=== PATIENT | female | born 1970 | race Caucasian/White ===

== ENCOUNTER 2017-08-08 23:10 | Emergency (ER) | payer OTHER ==
[~2017-08-08] VITALS: Ht 154.9 cm; Wt 112.5 kg
[2017-08-08] MEDS ORDERED: LISI2.5T PO (23:46)
[2017-08-08 23:52] LABS: HEMATOCRIT 44.2 % (34.6-47.8); HEMOGLOBIN 15.1 g/dL (11.7-16.4); WHITE BLOOD COUNT 15.6 x10^3/uL (3.4-10)
[2017-08-08] MEDS ORDERED: DIPHENHYDRAMINE 50 MG/ML, 1ML ONE (23:53)
[2017-08-08] MEDS ORDERED: PROCHLORPERAZINE 5 MG/ML, 2ML ONE (23:53)
[2017-08-08] MEDS ORDERED: KETOROLAC 30 MG/1 ML ONE (23:53)
[2017-08-09] LABS: BLOOD UREA NITROGEN 11 mg/dL (7-18)
[2017-08-09] MEDS ORDERED: SODIUM CHLORIDE 0.9% 1,000ML IVBOLUS ONE
[2017-08-09] MEDS ORDERED: PROCHLORPERAZINE 5 MG/ML, 2ML IVPush ONE
[2017-08-09] MEDS ORDERED: DIPHENHYDRAMINE 50 MG/ML, 1ML IVPush ONE
[2017-08-09] MEDS ORDERED: SODIUM CHLORIDE FLUSH 10ML SYR IVF ONE
[2017-08-09] MEDS ORDERED: KETOROLAC 30 MG/1 ML IVPush ONE
[2017-08-09] MEDS ORDERED: LORazepam 2 MG/ML, 1ML IVPush ONE (00:30)
[2017-08-09 01:09] VITALS: BP 162/85
== END 2017-08-09 01:08 | disposition home or self-care (01) ==
LOC: ED 23:59
DX: R51 Headache (principal); R11.0 Nausea; I10 Essential (primary) hypertension; E66.9 Obesity, unspecified; F15.10 Other stimulant abuse, uncomplicated; Z90.49 Acquired absence of other specified parts of digestive tract; Z88.5 Allergy status to narcotic agent
CPT/HCPCS: 36415; 70450; 80048; 80307; 82040; 85025; 96361; 96374; 96375; 99285; J0780; J1200; J1885; J7030; G0479

== ENCOUNTER 2017-09-20 10:14 | Emergency (ER) | payer MEDICAID, OTHER ==
[~2017-09-20] VITALS: Ht 154.9 cm; Wt 115.1 kg
[~2017-09-20 10:14] MED LIST: LISI2.5T PO
[2017-09-20 10:26] VITALS: BP 191/111
[2017-09-20] MEDS ORDERED: SODIUM CHLORIDE FLUSH 10ML SYR IVF ONE (12:00)
[2017-09-20] MEDS ORDERED: SODIUM CHLORIDE 0.9% 1,000ML IVBOLUS ONE (12:00)
[2017-09-20 12:02] LABS: BASOPHILS # (AUTO) 0.19 x10^3/uL (0-0.1); BASOPHILS % (AUTO) 2 % (0-1); EOSINOPHILS # (AUTO) 0.27 x10^3/uL (0-0.4); EOSINOPHILS % (AUTO) 2 % (1-7); LYMPHOCYTES # (AUTO) 2.92 x10^3/uL (1-3.4); LYMPHOCYTES % (AUTO) 25 % (22-44); MD NO; MEAN CORPUSCULAR HGB CONC 33.5 g/dL (32.4-35.8); MEAN CORPUSCULAR VOLUME 86.5 fL (80-100); MEAN PLATELET VOLUME 8.4 fL (7.4-10.4); MONOCYTES # (AUTO) 0.57 x10^3/uL (0.2-0.8); MONOCYTES % (AUTO) 5 % (2-9); NEUTROPHILS % (AUTO) 66 % (42-75); PLATELET COUNT 398 x10^3/uL (130-400); RED BLOOD COUNT 4.87 x10^6/uL (3.82-5.3); RED CELL DISTRIBUTION WIDTH 14.5 % (9.6-15.2)
[2017-09-20 12:12] LABS: ALANINE AMINOTRANSFERASE 29 U/L (12-78); ALBUMIN 3.5 g/dL (3.4-5.0); ANION GAP 5 mmol/L (5-15); CALCIUM 8.7 mg/dL (8.5-10.1); CHLORIDE 106 mmol/L (98-107)
[2017-09-20 12:16] LABS: ALKALINE PHOSPHATASE 157 U/L (45-117); BILIRUBIN,TOTAL 0.3 mg/dL (0.2-1.0); CREATININE 0.49 mg/dL (0.55-1.02); TOTAL PROTEIN 7.5 g/dL (6.4-8.2)
== END 2017-09-20 14:22 | disposition home or self-care (01) ==
LOC: ED 14:16
DX: N92.4 Excessive bleeding in the premenopausal period (principal); N93.8 Other specified abnormal uterine and vaginal bleeding; E11.9 Type 2 diabetes mellitus without complications; I10 Essential (primary) hypertension; E66.9 Obesity, unspecified
CPT/HCPCS: 36415; 76830; 80053; 84703; 85025; 99285

== ENCOUNTER 2020-06-18 17:45 | Inpatient (IN) | payer MEDICAID ==
[~2020-06-18] VITALS: Ht 154.9 cm; Wt 145.1 kg
[2020-06-18] MEDS ORDERED: SODIUM CHLORIDE FLUSH 10ML SYR IVF ONE ×2 (18:30→20:00)
[2020-06-18] MEDS ORDERED: LIDOCAINE 1%, 10ML INFIL ONE (18:30)
[2020-06-18 19:07] LABS: BASOPHILS % (AUTO) 1 % (0-1); EOSINOPHILS % (AUTO) 1 % (1-7); LYMPHOCYTES % (AUTO) 17 % (22-44); MEAN CORPUSCULAR HEMOGLOBIN 28.4 pg (27.0-34.8); MEAN CORPUSCULAR HGB CONC 32.7 g/dL (32.4-35.8); MEAN PLATELET VOLUME 8.7 fL (7.4-10.4); MONOCYTES % (AUTO) 8 % (2-9); NEUTROPHILS % (AUTO) 74 % (42-75); PLATELET COUNT 443 x10^3/uL (130-400); RED BLOOD COUNT 5.05 x10^6/uL (3.82-5.3); RED CELL DISTRIBUTION WIDTH 14.1 % (9.6-15.2)
[2020-06-18 19:12] LABS: ALANINE AMINOTRANSFERASE 27 U/L (12-78); ALBUMIN 3.1 g/dL (3.4-5.0); ANION GAP 9 mmol/L (5-15); CALCIUM 9.2 mg/dL (8.5-10.1); CHLORIDE 98 mmol/L (98-107); CREATININE 1.62 mg/dL (0.55-1.02)
[2020-06-18] MEDS ORDERED: LIDOCAINE-MPF 1%, 5ML ONE (19:14)
[2020-06-18 19:17] LABS: MD NO
[2020-06-18 19:20] LABS: ALKALINE PHOSPHATASE 139 U/L (45-117); BILIRUBIN,TOTAL 0.6 mg/dL (0.2-1.0); TOTAL PROTEIN 8.7 g/dL (6.4-8.2)
--- NOTE | 2020-06-18 19:22 | NUR ---
LARGE RED, HOT, SWOLLEN, PAINFUL AREA BETWEEN GLUTEAL FOLDS, HAS BEEN TAKING ABX REPORTS GETTING WORSE.
[2020-06-18] MEDS ORDERED: ONDANSETRON 2MG/ML, 2ML IVPush ONE (20:00)
[2020-06-18] MEDS ORDERED: SODIUM CHLORIDE 0.9% 1,000ML IVBOLUS ONE (20:00)
[2020-06-18] MEDS ORDERED: PROPOFOL 10 MG/ML, 20ML IVPush ONE (20:00)
--- NOTE | 2020-06-18 20:03 | NUR ---
PT W SEVER APARNA, MORBIDLY OBESE. REQUIRING SEDATION, RECOMMEND MOVE TO HIGHER ACUITY ROOM. REPORT ENDORSED.
[2020-06-18] MEDS ORDERED: PROPOFOL 10 MG/ML, 20ML ONE ×2 (20:18)
--- NOTE | 2020-06-18 20:18 | NUR ---
RECEIVED BS REPORT FROM STANISLAW HARRY TO ASSUME PT. CARE. PT. MOVED TO T2 FOR PROCEDURAL SEDATION SET UP. LAB AT BS FOR BLOOD CULTURES AT THIS TIME.
[2020-06-18] MEDS ORDERED: ONDANSETRON 2MG/ML, 2ML ONE (20:54)
[2020-06-18] MEDS ORDERED: MORPHINE SULFATE 4 MG/ML, 1ML ONE ×2 (20:55→21:34)
[2020-06-18] MEDS: MORPHINE SULFATE 4 MG/ML, 1ML IVPush PRN ×2 (20:56→21:37)
[2020-06-18] MEDS ORDERED: AMPICILLIN/SULBACTAM 3 GM in SODIUM CHLORIDE 0.9% 100 ML IV ONE (21:00)
[2020-06-18] MEDS ORDERED: VANCOMYCIN PER PHARMACY MC ONE (21:00)
[2020-06-18] MEDS ORDERED: VANCOMYCIN 2,500 MG in SODIUM CHLORIDE 0.9% 500 ML IV ONE (21:00)
[2020-06-18] MEDS ORDERED: VANCOMYCIN PER PHARMACY MC PRN ×2 (21:00→22:00)
[2020-06-18] MEDS ORDERED: MONT10TA6 PO (21:07)
[2020-06-18] MEDS ORDERED: ALBU0.63 INH (21:07)
[2020-06-18] MEDS ORDERED: BACL20TA PO (21:07)
[2020-06-18] MEDS ORDERED: HYDR25TA6 PO (21:07)
[2020-06-18] MEDS ORDERED: METF500T17 PO (21:07)
--- NOTE | 2020-06-18 21:12 | NUR ---
IV ABX WERE STARTED AFTER 2 SETS OF BLOOD CULTURES
--- NOTE | 2020-06-18 21:30 | NUR ---
PROCEDURAL SEDATION COMPLETED; SEE PAPERWORK FOR ALL DETAILS. MEDS ADMIN BY DR. JASMINE AT AND I&D OF LEFT BUTTOCK COMPLETED BY ABRAM RODRÍGUEZ. DRAINAGE CULTURE COLLECTED AND TAKEN TO LAB. PT. CRYING IN PAIN AT THIS TIME; WILL DISCUSS WITH .
--- NOTE | 2020-06-18 21:37 | NUR ---
PT. MEDICATED WITH 2ND DOSE OF MORPHINE PER MAR POST SEDATION FOR CONTINUED 10/10 PAIN TO LEFT BUTTOCK.
--- NOTE | 2020-06-18 21:50 | NUR ---
PT. RESTING ON GURENY WITH EYES CLOSED AT THIS TIME. APPEARS MORE COMFORTABLE. ALL MONITORS REMAIN IN PLACE. ETCO2=40.
[2020-06-18] MEDS: AMPICILLIN/SULBACTAM 3 GM in SODIUM CHLORIDE 0.9% 100 ML IV SCH (21:52)
[2020-06-18] MEDS ORDERED: POLYETHYLENE GLYCOL 17 GM PACKET PO PRN (22:00)
[2020-06-18] MEDS ORDERED: ONDANSETRON ODT 4 MG PO PRN (22:00)
[2020-06-18] MEDS ORDERED: BISACODYL 10 MG SUPP PR PRN (22:00)
[2020-06-18] MEDS ORDERED: ACETAMINOPHEN 325 MG TABLET PO PRN (22:00)
--- NOTE | 2020-06-18 22:04 | NUR ---
FIRST ATTEMPT TO CALL REPORT TO FLOOR.
--- NOTE | 2020-06-18 22:14 | NUR ---
REPORT TO STANISLAW JOHNSON. FLOOR READY FOR PT. TRANSPORT. ENDORSED TO STANISLAW JOHNSON THAT MED REQ WAS NOT YET COMPLETED; BOLUS STILL INFSUING AT TIME OF TRANSFER.
[2020-06-18] MEDS ORDERED: LOSA100T14 PO (22:59)
[2020-06-18] MEDS ORDERED: PHARMACOKINETIC MONITORING MC PRN (23:00)
[2020-06-18] MEDS ORDERED: ALBUTEROL HFA 90 MCG/SPRAY INH PRN (23:00)
[2020-06-18] MEDS: INSULIN LISPRO 100 UNITS/ML, PEN SQ-INSULIN SCH (23:41)
[2020-06-18] MEDS: SODIUM CHLORIDE 0.9% 1,000 ML IV SCH (23:42)
[2020-06-18] MEDS: HEPARIN 5,000 UNITS/ML, 1ML SQ SCH (23:46)
[2020-06-19 00:25] VITALS: BP 123/70
[2020-06-19] MEDS: AMPICILLIN/SULBACTAM 3 GM in SODIUM CHLORIDE 0.9% 100 ML IV SCH ×4 (04:35→22:44)
[2020-06-19 05:31] LABS: ANION GAP 10 mmol/L (5-15); BASOPHILS % (AUTO) 1 % (0-1); CALCIUM 8.3 mg/dL (8.5-10.1); CHLORIDE 102 mmol/L (98-107); EOSINOPHILS % (AUTO) 2 % (1-7); LYMPHOCYTES % (AUTO) 22 % (22-44); MEAN CORPUSCULAR HEMOGLOBIN 28.5 pg (27.0-34.8); MEAN CORPUSCULAR HGB CONC 32.7 g/dL (32.4-35.8); MEAN PLATELET VOLUME 8.5 fL (7.4-10.4); MONOCYTES % (AUTO) 9 % (2-9); NEUTROPHILS % (AUTO) 67 % (42-75); PLATELET COUNT 358 x10^3/uL (130-400); RED BLOOD COUNT 4.12 x10^6/uL (3.82-5.3); RED CELL DISTRIBUTION WIDTH 14.2 % (9.6-15.2)
[2020-06-19] MEDS: SODIUM CHLORIDE 0.9% 1,000 ML IV SCH ×3 (05:32→19:51)
[2020-06-19 05:59] LABS: MD NO
[2020-06-19 07:12] VITALS: BP 125/81
[2020-06-19] MEDS: HEPARIN 5,000 UNITS/ML, 1ML SQ SCH ×2 (08:24→16:09)
[2020-06-19] MEDS: SENNA/DOCUSATE TABLET PO SCH (08:25)
[2020-06-19] MEDS: INSULIN LISPRO 100 UNITS/ML, PEN SQ-INSULIN SCH ×4 (08:27→20:16)
[2020-06-19] MEDS: MONTELUKAST 10 MG TABLET PO SCH (08:27)
[2020-06-19 12:38] VITALS: BP 135/83
[2020-06-19] MEDS: VANCOMYCIN 2,300 MG in SODIUM CHLORIDE 0.9% 500 ML IV SCH (18:03)
[2020-06-19] MEDS: BACLOFEN 10 MG TABLET PO SCH (19:51)
[2020-06-19 20:50] VITALS: BP 136/78
[2020-06-20 02:46] VITALS: BP 128/74
[2020-06-20] MEDS: AMPICILLIN/SULBACTAM 3 GM in SODIUM CHLORIDE 0.9% 100 ML IV SCH ×3 (04:12→18:33)
[2020-06-20] MEDS: SODIUM CHLORIDE 0.9% 1,000 ML IV SCH ×3 (04:14→19:38)
[2020-06-20 05:08] LABS: BASOPHILS % (AUTO) 1 % (0-1); EOSINOPHILS % (AUTO) 4 % (1-7); LYMPHOCYTES % (AUTO) 35 % (22-44); MEAN CORPUSCULAR HEMOGLOBIN 28.5 pg (27.0-34.8); MEAN CORPUSCULAR HGB CONC 32.8 g/dL (32.4-35.8); MEAN PLATELET VOLUME 8.3 fL (7.4-10.4); MONOCYTES % (AUTO) 8 % (2-9); NEUTROPHILS % (AUTO) 53 % (42-75); PLATELET COUNT 336 x10^3/uL (130-400); RED BLOOD COUNT 4.17 x10^6/uL (3.82-5.3); RED CELL DISTRIBUTION WIDTH 14.1 % (9.6-15.2)
[2020-06-20 05:15] LABS: ANION GAP 7 mmol/L (5-15); CHLORIDE 107 mmol/L (98-107); CREATININE 0.62 mg/dL (0.55-1.02)
[2020-06-20 05:24] LABS: MD NO
[2020-06-20 07:39] VITALS: BP 175/109
[2020-06-20] MEDS: MONTELUKAST 10 MG TABLET PO SCH (07:47)
[2020-06-20] MEDS: HEPARIN 5,000 UNITS/ML, 1ML SQ SCH ×3 (07:47→16:52)
[2020-06-20] MEDS: SENNA/DOCUSATE TABLET PO SCH (07:47)
[2020-06-20] MEDS: INSULIN LISPRO 100 UNITS/ML, PEN SQ-INSULIN SCH ×4 (07:57→20:06)
[2020-06-20] MEDS: morphine SULFATE 10 MG/ML, 1ML IVPush PRN ×3 (08:01→19:36)
[2020-06-20 09:58] VITALS: BP 136/80
[2020-06-20] MEDS ORDERED: morphine SULFATE 10 MG/ML, 1ML IVPush ONE (10:30)
[2020-06-20] MEDS: VANCOMYCIN 2,300 MG in SODIUM CHLORIDE 0.9% 500 ML IV SCH (12:01)
[2020-06-20 14:00] VITALS: BP 174/101
[2020-06-20] MEDS: BACLOFEN 10 MG TABLET PO SCH (19:36)
[2020-06-20 19:45] VITALS: BP 106/76
[2020-06-21 00:06] VITALS: BP 162/89
[2020-06-21] MEDS: AMPICILLIN/SULBACTAM 3 GM in SODIUM CHLORIDE 0.9% 100 ML IV SCH ×4 (00:09→16:29)
[2020-06-21] MEDS: SODIUM CHLORIDE 0.9% 1,000 ML IV SCH (03:43)
[2020-06-21 05:15] LABS: BASOPHILS % (AUTO) 1 % (0-1); EOSINOPHILS % (AUTO) 4 % (1-7); LYMPHOCYTES % (AUTO) 33 % (22-44); MEAN CORPUSCULAR HEMOGLOBIN 28.6 pg (27.0-34.8); MEAN CORPUSCULAR HGB CONC 33.2 g/dL (32.4-35.8); MEAN PLATELET VOLUME 8.2 fL (7.4-10.4); MONOCYTES % (AUTO) 9 % (2-9); NEUTROPHILS % (AUTO) 53 % (42-75); PLATELET COUNT 340 x10^3/uL (130-400); RED BLOOD COUNT 3.88 x10^6/uL (3.82-5.3); RED CELL DISTRIBUTION WIDTH 13.8 % (9.6-15.2)
[2020-06-21 05:24] LABS: MD NO
[2020-06-21 05:27] LABS: ANION GAP 4 mmol/L (5-15); CALCIUM 8.3 mg/dL (8.5-10.1); CHLORIDE 109 mmol/L (98-107)
[2020-06-21] MEDS: morphine SULFATE 10 MG/ML, 1ML IVPush PRN ×3 (05:28→15:33)
[2020-06-21] MEDS: VANCOMYCIN 2,300 MG in SODIUM CHLORIDE 0.9% 500 ML IV SCH (06:36)
[2020-06-21 07:34] VITALS: BP 159/85
[2020-06-21 07:51] VITALS: BP 185/133
[2020-06-21] MEDS: INSULIN LISPRO 100 UNITS/ML, PEN SQ-INSULIN SCH ×3 (08:16→16:51)
[2020-06-21] MEDS: MONTELUKAST 10 MG TABLET PO SCH (08:17)
[2020-06-21] MEDS: SENNA/DOCUSATE TABLET PO SCH (08:17)
[2020-06-21] MEDS: HEPARIN 5,000 UNITS/ML, 1ML SQ SCH ×3 (08:17→16:29)
[2020-06-21 15:26] VITALS: BP 194/106
[2020-06-21 16:30] VITALS: BP 182/109
[2020-06-21] MEDS ORDERED: LOSARTAN 100 MG TAB PO SCH (18:00)
[2020-06-22] MEDS ORDERED: VANCOMYCIN 2,500 MG in SODIUM CHLORIDE 0.9% 500 ML IV SCH (01:00)
[2020-06-22] MEDS ORDERED: metFORMIN 500 MG TABLET PO SCH (08:00)
== END 2020-06-21 20:51 | disposition left against medical advice (07) | DRG 871 ==
LOC: ED 19:50 → EDIP 21:32 → 3N 22:24
PROVIDERS: ADMIT Family Medicine; ATTEND Family Medicine
PROC: 0Y910ZZ Drainage of Left Buttock, Open Approach (ICD-10-PCS; principal; 2020-06-18)
DX: A41.9 Sepsis, unspecified organism (principal); N17.0 Acute kidney failure with tubular necrosis; Z68.44 Body mass index [BMI] 60.0-69.9, adult; L02.31 Cutaneous abscess of buttock; L03.317 Cellulitis of buttock; Z88.8 Allergy status to other drugs, medicaments and biological substances; Z53.29 Procedure and treatment not carried out because of patient's decision for other reasons; I10 Essential (primary) hypertension; J45.909 Unspecified asthma, uncomplicated; E66.01 Morbid (severe) obesity due to excess calories; Z71.3 Dietary counseling and surveillance; D47.3 Essential (hemorrhagic) thrombocythemia; E11.65 Type 2 diabetes mellitus with hyperglycemia
CPT/HCPCS: 10060; 36415; 80048; 80053; 80202; 82962; 83036; 83605; 84145; 85025; 87040; 87070; 87077; 87147; 87186; 87205; 96365; 96375; 99152; 99291; G0378; J0295; J1644; J2405; J3370; J1815; J2270; J7030; J7040

== ENCOUNTER 2020-06-23 21:03 | Emergency (ER) | payer MEDICAID ==
[~2020-06-23] VITALS: Ht 154.9 cm; Wt 138.0 kg
[~2020-06-23 21:03] MED LIST changes: +ALBU0.63 INH; +BACL20TA PO; +HYDR25TA6 PO; +LOSA100T14 PO; +METF500T17 PO; +MONT10TA6 PO
--- NOTE | 2020-06-23 21:30 | NUR ---
PT WHEELED FROM TRIAGE TO ROOM AT THIS TIME. DR GUILLERMO AT FOR PT HISTORY AND ASSESSMENT.
[2020-06-23] MEDS ORDERED: METOPROLOL TARTRATE 50 MG TAB ONE (21:52)
[2020-06-23 22:00] LABS: MEAN CORPUSCULAR HEMOGLOBIN 28.5 pg (27.0-34.8); MEAN CORPUSCULAR HGB CONC 32.6 g/dL (32.4-35.8); MEAN PLATELET VOLUME 8.2 fL (7.4-10.4); PLATELET COUNT 421 x10^3/uL (130-400); RED BLOOD COUNT 4.34 x10^6/uL (3.82-5.3); RED CELL DISTRIBUTION WIDTH 13.9 % (9.6-15.2)
[2020-06-23] MEDS ORDERED: METOPROLOL TARTRATE 50 MG TAB PO ONE (22:00)
[2020-06-23 22:09] LABS: ALBUMIN 3.1 g/dL (3.4-5.0); ANION GAP 6 mmol/L (5-15); CALCIUM 9.1 mg/dL (8.5-10.1); CHLORIDE 108 mmol/L (98-107); CREATININE 0.99 mg/dL (0.55-1.02)
--- NOTE | 2020-06-23 22:16 | NUR ---
PT RESTING COMFORTABLY IN [facility] AT THIS TIME; EL.
[2020-06-23 22:41] LABS: MD YES
[2020-06-23 22:42] LABS: BAND#(MANUAL) 0.25 x10^3/uL; BANDS%(MANUAL) 2 % (0-7); BASOS#(MANUAL) 0.13 x10^3/uL (0-0.1); BASOS% (MANUAL) 1 % (0-1); EOS#(MANUAL) 0.25 x10^3/uL (0.0-0.4); EOS% (MANUAL) 2 % (1-7); LYMPHS% (MANUAL) 28 % (22-44); MONOS% (MANUAL) 4 % (2-9); MYELOCYTES# (MANUAL) 0.13 x10^3/uL (0-0); MYELOCYTES% (MANUAL) 1 % (0-0); SEG#(MANUAL) 7.75 x10^3/uL (1.8-6.8); SEGS% (MANUAL) 62 % (42-75)
[2020-06-23 22:43] LABS: ANISOCYTOSIS 1+; POLYCHROMASIA 1+
[2020-06-23 22:44] LABS: <PLATELET ESTIMATE> ADEQUATE; <PLT MORPHOLOGY> NORMAL PLT MORPH; HYPOCHROMIA 1+
--- NOTE | 2020-06-23 23:18 | NUR ---
pt d/c with d/c summary and scripts. pt educated on need for continued antibiotic use and verbalizes understanding. pt questions answered at this time. pt ambulates to registration desk with steady gait and denies any other needs pertaining to this visit.
[2020-06-23 23:20] VITALS: BP 180/100
== END 2020-06-23 23:23 | disposition home or self-care (01) ==
LOC: ED 22:08
DX: L02.31 Cutaneous abscess of buttock (principal); R94.31 Abnormal electrocardiogram [ECG] [EKG]; I10 Essential (primary) hypertension; E11.65 Type 2 diabetes mellitus with hyperglycemia; Z90.49 Acquired absence of other specified parts of digestive tract; Z90.89 Acquired absence of other organs
CPT/HCPCS: 36415; 80048; 82040; 85025; 93005; 99284

== ENCOUNTER 2021-02-07 02:00 | Inpatient (IN) | payer MEDICAID ==
[~2021-02-07] VITALS: Ht 154.9 cm; Wt 139.0 kg
--- NOTE | 2021-02-07 02:16 | NUR ---
INITIAL PT CONTACT. PT PRESENTS TO ED C/O PAIN, SWELLING, TENDERNESS AND INCREASED WARMTH TO THE LEFT LITTLE FINGER. PT STATES "I HAVE BEEN MOVING AND DOING A LOT OF STUFF WITH MY HANDS AND MUSTVE GOTTEN A CUT AND NOW IT HURTS, URGENT CARE TOLD ME I NEEDED TO COME TO THE ER FOR IV ABX AND PAIN MEDICATION." PT SITTING UPRIGHT ON CASSANDRA CAO VSS. ERP AT BEDSIDE. LEFT LITTLE FINGER NOTED TO BE SWOLLEN, TENDER, UNUSUALLY WARM AND INCREASED ERYTHEMA NOTED.
[2021-02-07] MEDS ORDERED: SODIUM CHLORIDE 0.9% 1,000ML IVBOLUS ONE ×2 (02:30→04:00)
[2021-02-07] MEDS ORDERED: SODIUM CHLORIDE FLUSH 10ML SYR IVF ONE (02:30)
[2021-02-07] MEDS ORDERED: MORPHINE SULFATE 4 MG/ML, 1ML ONE (02:30)
[2021-02-07] MEDS ORDERED: ONDANSETRON 2MG/ML, 2ML IVPush ONE (02:30)
[2021-02-07] MEDS ORDERED: ONDANSETRON 2MG/ML, 2ML ONE (02:30)
[2021-02-07] MEDS ORDERED: MORPHINE SULFATE 4 MG/ML, 1ML IV PRN (02:30)
--- NOTE | 2021-02-07 02:43 | NUR ---
ERP DR. GUILLERMO AT BEDSIDE
--- NOTE | 2021-02-07 02:53 | NUR ---
XRAY AT BEDSIDE
[2021-02-07 03:16] LABS: BASOPHILS % (AUTO) 1 % (0-1); EOSINOPHILS % (AUTO) 2 % (1-7); LYMPHOCYTES % (AUTO) 23 % (22-44); MEAN CORPUSCULAR HEMOGLOBIN 29.3 pg (27.0-34.8); MEAN CORPUSCULAR HGB CONC 34.1 g/dL (32.4-35.8); MEAN PLATELET VOLUME 9.7 fL (7.4-10.4); MONOCYTES % (AUTO) 7 % (2-9); NEUTROPHILS % (AUTO) 67 % (42-75); PLATELET COUNT 330 x10^3/uL (130-400); RED BLOOD COUNT 5.04 x10^6/uL (3.82-5.3); RED CELL DISTRIBUTION WIDTH 13.8 % (9.6-15.2)
[2021-02-07 03:17] LABS: MD NO
[2021-02-07 03:25] LABS: ALANINE AMINOTRANSFERASE 28 U/L (12-78); ALBUMIN 3.4 g/dL (3.4-5.0); ANION GAP 10 mmol/L (5-15); CALCIUM 8.8 mg/dL (8.5-10.1); CHLORIDE 97 mmol/L (98-107); CREATININE 0.92 mg/dL (0.55-1.02)
[2021-02-07 03:27] LABS: ALKALINE PHOSPHATASE 184 U/L (45-117); BILIRUBIN,TOTAL 0.3 mg/dL (0.2-1.0); TOTAL PROTEIN 7.6 g/dL (6.4-8.2)
--- NOTE | 2021-02-07 03:32 | NUR ---
PT LYING IN BED. ATTACHED TO MONITORS. VSS. PT WORRIED ABOUT FAMILY BACK IN HER MOTEL. PT ON PHONE NOTIFYING FAMILY MEMBERS OF CURRENT STATUS.
--- NOTE | 2021-02-07 03:56 | NUR ---
BS GLUCOMETER [id number]
[2021-02-07] MEDS ORDERED: CEFTRIAXONE 1,000 MG in DEXTROSE 5% 50 ML IVPB ONE (04:00)
[2021-02-07] MEDS ORDERED: INSULIN SINGLE DOSE, ER ONE (04:00)
[2021-02-07] MEDS: INSULIN REGULAR 100 UNITS/ML, 3ML VIAL IVPush ONE ×2 (04:03→04:04)
[2021-02-07] MEDS ORDERED: ONDANSETRON 2MG/ML, 2ML IVPush PRN ×2 (04:30→05:30)
--- NOTE | 2021-02-07 04:58 | NUR ---
pt ambulated to bathroom and back. steady gait. attached to monitors. vss, resting in bed. still worried bout family and children. wctm
--- NOTE | 2021-02-07 05:07 | NUR ---
GAVE REPORT TO REY
--- NOTE | 2021-02-07 05:11 | NUR ---
blood glucose 305
[2021-02-07 05:20] VITALS: BP 153/103
[2021-02-07] MEDS ORDERED: PROMETHAZINE 25 MG/ML, 1ML IM PRN (05:30)
[2021-02-07] MEDS ORDERED: BISACODYL 10 MG SUPP PR PRN (05:30)
[2021-02-07] MEDS ORDERED: ONDANSETRON ODT 4 MG PO PRN (05:30)
[2021-02-07] MEDS ORDERED: PHARMACOKINETIC MONITORING MC PRN (05:30)
[2021-02-07] MEDS ORDERED: VANCOMYCIN PER PHARMACY MC PRN (05:30)
[2021-02-07] MEDS ORDERED: ALBUTEROL HFA 90 MCG/SPRAY INH PRN (05:30)
[2021-02-07] MEDS ORDERED: SODIUM CHLORIDE 0.9% 1,000 ML IV SCH (05:30)
[2021-02-07] MEDS ORDERED: VANCOMYCIN PMX 1GM/200ML 200 ML IV ONE (05:30)
[2021-02-07] MEDS ORDERED: POLYETHYLENE GLYCOL 17 GM PACKET PO PRN (05:30)
[2021-02-07] MEDS ORDERED: AMPICILLIN/SULBACTAM 3 GM in SODIUM CHLORIDE 0.9% 100 ML IV SCH (05:30)
[2021-02-07] MEDS ORDERED: DOCUSATE 100 MG CAPSULE PO PRN (05:30)
[2021-02-07] MEDS ORDERED: hydrALAzine 20 MG/ML, 1ML IVPush PRN (05:30)
[2021-02-07] MEDS ORDERED: INSULIN GLARGINE 100 UNITS/ML, PEN SQ-INSULIN ONE (05:30)
[2021-02-07] MEDS ORDERED: ACETAMINOPHEN 325 MG TABLET PO PRN (05:30)
[2021-02-07] MEDS ORDERED: VANCOMYCIN 2,500 MG in SODIUM CHLORIDE 0.9% 500 ML IV ONE (06:00)
[2021-02-07] MEDS ORDERED: VANCOMYCIN 2,600 MG in SODIUM CHLORIDE 0.9% 500 ML IV ONE (06:00)
[2021-02-07 06:01] LABS: C-REACTIVE PROTEIN, QUANT 3.1 mg/dL (0.02-0.49); FREE T4 (FREE THYROXINE) 1.14 ng/dL (0.76-1.46)
[2021-02-07 06:18] LABS: HCT (SEDRATE) 43.2 % (34.6-47.8)
[2021-02-07 06:42] LABS: ESTIMATED AVERAGE GLUCOSE 355 mg/dL (0-126)
[2021-02-07] MEDS ORDERED: INSULIN LISPRO 100 UNITS/ML, PEN SQ-INSULIN SCH (07:00)
[2021-02-07] MEDS ORDERED: MONTELUKAST 10 MG TABLET PO SCH (09:00)
[2021-02-07] MEDS ORDERED: LOSARTAN 100 MG TAB PO SCH (09:00)
== END 2021-02-07 08:07 | disposition left against medical advice (07) | DRG 558 ==
LOC: ED 03:13 → EDIP 04:10 → 3N 05:18
PROVIDERS: ADMIT Internal Medicine; ATTEND Internal Medicine
DX: M65.142 Other infective (teno)synovitis, left hand (principal); Z68.43 Body mass index [BMI] 50.0-59.9, adult; E11.65 Type 2 diabetes mellitus with hyperglycemia; E66.01 Morbid (severe) obesity due to excess calories; I10 Essential (primary) hypertension; J45.909 Unspecified asthma, uncomplicated; L03.012 Cellulitis of left finger; Z59.0 Homelessness; Z79.4 Long term (current) use of insulin; Z91.14 Patient's other noncompliance with medication regimen; Z88.8 Allergy status to other drugs, medicaments and biological substances
CPT/HCPCS: 36415; 80053; 83036; 83605; 83735; 84100; 84439; 84443; 85025; 85651; 86140; 87040; 96374; 96375; 99291; G0378; J0696; J1815; J2405; J2270; J7030

== ENCOUNTER 2021-05-27 17:03 | Emergency (ER) | payer MEDICAID ==
[~2021-05-27] VITALS: Ht 172.7 cm; Wt 105.0 kg
[~2021-05-27 17:03] MED LIST changes: -LISI2.5T PO; +LISI2.5T12 PO
[2021-05-27 17:32] VITALS: BP 200/110
--- NOTE | 2021-05-27 18:07 | NUR ---
CATERING COORDINATOR: PT TO ROOM FROM MARIE MUNOZ
--- NOTE | 2021-05-27 18:08 | NUR ---
PATIENT WALKED BACK FROM [employer] [facility] FOR THE [place]EE[place]-MINDED WITH CHIEF C/O ABSCESS ON LEFT BUTTOCKS, PER PATIENT IT IS "ABOUT THE SIZE OF A BANANA." PATIENT HAS HISTORY OF SIMILAR ISSUE. ELN, CONNECTED TO MONITOR, VSS, CALL LIGHT WITHIN REACH.
[2021-05-27] MEDS ORDERED: LIDOCAINE-MPF 1%, 2ML ONE (18:12)
[2021-05-27] MEDS ORDERED: LIDOCAINE-MPF 1%, 5ML ONE ×2 (18:12→18:17)
--- NOTE | 2021-05-27 18:19 | NUR ---
ERMD AT BEDSIDE FOR EVALUATION.
[2021-05-27] MEDS ORDERED: LIDOCAINE 1%, 10ML INFIL ONE (18:30)
--- NOTE | 2021-05-27 18:48 | NUR ---
PATIENT LEFT WITHOUT DISCHARGE PAPERWORK, STABLE, WALKED OUT OF ED WITH STEADY GAIT AND ALL OF HER BELONGINGS.
== END 2021-05-27 18:49 | disposition home or self-care (01) ==
LOC: ED 17:15
DX: L02.31 Cutaneous abscess of buttock (principal)
CPT/HCPCS: 99281